=== PATIENT | female | born 2000 | race American Indian/Alaskan Native ===

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

== ENCOUNTER 2022-11-03 07:53 | Inpatient (IN) ==
--- NOTE | 2022-11-03 09:23 | Emergency Department Note ---
History of Present Illness General Chief complaint: Breast Pain/Problems Stated complaint: RIGHT BREAST IS SWOLLEN Time Seen by Provider: 11/03/22 08:07 History of Present Illness Maximum Pain Intensity: 8 This 22-year-old female presents today for evaluation of her right breast. The patient notes pain in her right breast that began a week ago. She states there was a small firm area on the undersurface of her breast at that time. She saw her PCP and was placed on oral doxycycline for 1 month. She is still taking them. She does not think they are working. The redness has increased, as well as her pain. She denies extensive firmness to her breast laterally as well as superior over the areola. She notes chills but denies any fevers or sweats. No nausea or vomiting. She states there has been no drainage from the breast. No trauma. She has history of similar episode on her left breast in August that required incision and drainage at [facility]. No additional treatment. No other complaints. Home Medications Medication Instructions Recorded Confirmed Type doxycycline hyclate 100 mg capsule 100 mg PO BID 11/03/22 11/03/22 History fluoxetine 10 mg capsule See Rx Instructions .Route .COMPLEX 11/03/22 11/03/22 History fluoxetine 20 mg capsule See Rx Instructions .Route .COMPLEX 11/03/22 11/03/22 History lamotrigine 25 mg tablet 25 mg PO BID 11/03/22 11/03/22 History loratadine 10 mg tablet 10 mg PO DAILY PRN Allergy Symptoms 11/03/22 11/03/22 History ziprasidone HCl 20 mg capsule 20 mg PO HS 11/03/22 11/03/22 History Allergies Allergy/AdvReac Type Severity Reaction Status Date / Time No Known Allergies Allergy Verified 11/03/22 09:23 Past Med/Surg History Medical History Depression Granulomatous mastitis Pre-eclampsia, severe, third trimester Surgical History History of section History of incision and drainage Family History Other No significant family history Social History Smoking Status: Never smoker Hx Alcohol Use: No Hx Substance Use: No Preferred Language: Egyptian Communication Ability: Effective Scabbler Required: No Beliefs That Will Affect Care: None marital status: Single Current Living Situation: Family Current Living Situation Comment: house with parents Feels Safe at Home: Yes Safety Concerns: Feels Safe At This Time Gender Identity: Female Assistive Devices: None Review of Systems A total of 10 systems reviewed and were otherwise negative Physical Exam Vital Signs Vital Signs - 24 hr 11/03/22 08:00 11/03/22 10:00 11/03/22 11:59 Temperature 37.2 C Temperature Source Temporal Artery Scan Pulse Rate 101 H Pulse Rate [Right Finger] 87 88 Pulse Rhythm [Right Finger] Regular Regular Pulse Strength [Right Finger] Normal Normal Respiratory Rate 18 18 18 Respiratory Effort / Characteristics Non-Labored Non-Labored Spontaneous Respiratory Depth Normal Normal Respiratory Pattern Regular Regular Blood Pressure 123/79 Blood Pressure [Right Arm] 129/74 119/68 Blood Pressure Mean 93 Blood Pressure Mean [Right Arm] 92 85 Blood Pressure Position [Right Arm] Lying Pulse Oximetry 98 100 99 Oxygen Delivery Method Room Air Room Air Room Air Sepsis New/Unexplained Change in Mental Status No Sepsis Action Taken by Nursing No Action Required General: Well-developed, well-nourished, young female, in no acute distress. Sitting on the bed. Alert and oriented. Obvious discomfort. Skin: Warm and dry with good turgor. No rashes. She has significant erythema, induration, firmness, and warmth to the right breast. It is lateral and extends superior over the areola. Area measures approximate 8cm by 8 cm. There is no palpable fluctuant area or specific abscess. Nothing is expressible. The area is very tender to touch. Heart: Heart RRR. No MGR. Peripheral pulses are 2+. Lungs: Lungs are clear to auscultation. No crackles rhonchi or wheezing. Good air movement. The patient is able to take a deep breath. Genitalia: Right breast has the above-stated induration, erythema, and tenderness. Firmness is approximately 8 cm x 8 cm. No pustules. Nothing is expressible. Course Administered Medications Ampicillin Sodium/Sulbactam Sodium 3,000 mg/ Sodium Chloride 108 mls @ 200 mls/hr IV Q6H [facility]; Protocol Stop: 11/10/22 17:59 Last Infusion: 11/03/22 19:11 Dose: 0 mls/hr Documented By: Admin: 11/03/22 18:20 Dose: 200 mls/hr Documented By: CHRIS Discontinued Medications Acetaminophen (Acetaminophen 500 Mg Tab) 1,000 mg PO NOW STA Stop: 11/03/22 12:24 Last Admin: 11/03/22 12:32 Dose: 1,000 mg Documented By: CINDY Ampicillin Sodium/Sulbactam Sodium 3,000 mg/ Sodium Chloride 108 mls @ 200 mls/hr IV NOW STA; Protocol Stop: 11/03/22 12:06 Last Infusion: 11/03/22 12:49 Dose: 0 mls/hr Documented By: Admin: 11/03/22 11:58 Dose: 200 mls/hr Documented By: CINDY Medical Decision Making Differential Diagnosis Mastitis, fibrocystic disease, abscess, cellulitis Medical Records Attestation: I reviewed the patient's medical records. Home Medications Current Medication List: was personally reviewed by me Laboratory Data CBC obtained today shows an elevated white count of 16.8. H&H of 10.3 and 32.6. Elevated platelets of 575. Chemistry panel is unremarkable. 11/03/22 11:03 11/03/22 10:13 Lab Results 11/03/22 11/03/22 11/03/22 Range/Units 10:13 10:13 11:03 WBC Cancelled 16.80 H RBC Cancelled 4.23 Hgb Cancelled 10.3 L Hct Cancelled 32.6 L MCV Cancelled 77.1 L MCH Cancelled 24.3 L MCHC Cancelled 31.6 L RDW Std Deviation Cancelled 40.6 RDW Coeff of Laura Cancelled 14.6 H Plt Count Cancelled 575 H MPV Cancelled 8.5 L Immature Gran % (Auto) Cancelled 0.4 Neut % (Auto) Cancelled 76.0 Lymph % (Auto) Cancelled 16.7 [place] % (Auto) Cancelled 4.4 Eos % (Auto) Cancelled 2.0 Baso % (Auto) Cancelled 0.5 Neut # (Auto) Cancelled 12.79 H Lymph # (Auto) Cancelled 2.80 [place] # (Auto) Cancelled 0.74 H Eos # (Auto) Cancelled 0.33 Baso # (Auto) Cancelled 0.08 Immature Gran # (Auto) Cancelled 0.06 Absolute Nucleated RBC Cancelled Nucleated RBC % (auto) Cancelled Neutrophils % (Manual) Cancelled Band Neutrophils % Cancelled Lymphocytes % (Manual) Cancelled Prolymphocyte % Cancelled Reactive Lymphs % (Man) Cancelled Monocytes % (Manual) Cancelled Eosinophils % (Manual) Cancelled Basophils % (Manual) Cancelled Metamyelocytes % (Man) Cancelled Myelocytes % (Man) Cancelled Promyelocytes % (Man) Cancelled Blast Cells % (Manual) Cancelled Plasma Cell % (Manual) Cancelled Other Cells % Cancelled Nucleated RBC % Cancelled Neutrophils # (Manual) Cancelled Band Neutrophils # Cancelled Total Absolute Neuts Cancelled Lymphocytes # (Manual) Cancelled Prolymphocyte # Cancelled Reactive Lymphs # Cancelled Total Abs Lymphocytes Cancelled Monocytes # (Manual) Cancelled Eosinophils # (Manual) Cancelled Basophils # (Manual) Cancelled Metamyelocytes # (Man) Cancelled Myelocytes # (Manual) Cancelled Promyelocytes # (Man) Cancelled Blast Cells # (Man) Cancelled Plasma Cell # (Manual) Cancelled Other Cells # Cancelled Nucleated RBCs # (Man) Cancelled Hypersegmented Neuts Cancelled Hyposegmented Neuts Cancelled Hypogranular Neuts Cancelled Large Granular Lymphs Cancelled # Lrg Granular Lymphs Cancelled Hairy Cells Cancelled Smudge Cells Cancelled Toxic Granulation Cancelled Toxic Vacuolation Cancelled Dohle Bodies Cancelled Omega Rods Cancelled Platelet Estimate Cancelled Hypogranular Platelets Cancelled Giant Platelets Cancelled Platelet Satelliting Cancelled RBC Morphology Cancelled Polychromasia Cancelled Hypochromasia Cancelled Poikilocytosis Cancelled Basophilic Stippling Cancelled Anisocytosis Cancelled Microcytosis Cancelled Macrocytosis Cancelled Spherocytes Cancelled Pappenheimer Bodies Cancelled Sickle Cells Cancelled Target Cells Cancelled Tear Drop Cells Cancelled Ovalocytes Cancelled Stomatocytes Cancelled [place]anc[place] Bodies Cancelled Echinocytes Cancelled Acanthocytes (Spur) Cancelled Rouleaux Cancelled RBC Agglutinates Cancelled Schistocytes Cancelled Sezary Cell Cancelled Sodium 135 L (136-145) mmol/L Potassium 3.8 (3.5-5.1) mmol/L Chloride 101 (98-107) mmol/L Carbon Dioxide 25 (21-32) mmol/L Anion Gap 9 (3-11) BUN 14 (6-23) mg/dl Creatinine 0.67 (0.6-1.2) mg/dl Est Cr Clr Drug Dosing 144.2 ml/min Est GFR ( Amer) 145.6 ml/min Est GFR (Non-Af Amer) 125.7 ml/min BUN/Creatinine Ratio 20.9 H (10-20) Glucose 90 (70-99(Fasting)) mg/dl Calcium 9.2 (8.6-10.3) mg/dl Total Bilirubin 0.4 (0.2-1.0) mg/dl Direct Bilirubin 0.1 (0-0.2) mg/dl AST 13 (13-39) U/L ALT 10 (7-52) U/L Alkaline Phosphatase 100 (34-104) U/L Total Protein 7.9 (6.0-8.3) gm/dl Albumin 4.0 (3.4-5.0) gm/dl Globulin 3.9 (2.5-4.0) gm/dl Albumin/Globulin Ratio 1.0 (0.9-2) Blood Parasites ID Cancelled Imaging Data My Impression: Ultrasound of the right breast was obtained today. A heterogenous area measuri ng 3.1 x 2.0 x 1.4 cm is present. It favors a focal area of phlegmon/mastitis. Developing abscess is also considered. Radiologist's Impression: Breast Ultrasound 11/03/22 08:19 US breast RT limited CLINICAL HISTORY: red/painful firm breast, on Abx COMPARISON STUDY: None. FINDINGS: Real-time sonographic imaging of the right breast at the 12-1 o'clock location was performed with patient representative images submitted. At the patient's area of interest within the right breast there is a heterogeneous area measuring approximately 3.1 x 2.0 1.4 cm. There is a amount of color flow identified within this region. Therefore, this favors a focal area of phlegmon/mastitis. A developing abscess is also considered in the differential diagnosis. IMPRESSION: At the patient's area of interest within the right breast there is a heterogeneous area measuring approximately 3.1 x 2.0 1.4 cm. There is a amount of color flow identified within this region. Therefore, this favors a focal area of phlegmon/mastitis. A developing abscess is also considered in the differential diagnosis. Follow-up imaging at a dedicated breast cancer Center is recommended to ensure resolution and to exclude the less likely possibility of underlying lesion. ACT 112: Negative or not required by law. Electronically signed by: Edis Perkins M.D. 11/03/2022 9:33 AM Blood Pressure Blood Pressure Findings: Low blood pressure MDM Narrative The patient was evaluated in room A12. Conservative care measures were discussed. IV was established. Labs were obtained. She was placed on a media monitor and remained in a stable rhythm without ectopy. Rate in the 70s. Labs show an elevation in white count. Ultrasound of the right breast was obtained. It suggests mastitis or possible early abscess. There is nothing to I&D at this time. She has failed outpatient treatment with oral doxycycline. She was given Unasyn 3 g IV for treatment. I think she requires additional IV antibiotics to ensure resolution. The patient is in agreement. She will be admitted under observation for additional IV treatment. [facility] hospitalist team was consulted. Please see that dictation for final management. She remained stable while in the ED. Impression & Plan Acute mastitis of right breast Admission for IV antibiotics. Unasyn started in the ED. The patient was seen in conjunction with Dr. Major, who also evaluated the patient and concurred with today's diagnosis and treatment plan. Discharge Plan Visit Data Chief Complaint: Breast Pain/Problems Stated Complaint: RIGHT BREAST IS SWOLLEN ED Provider: Jacques Major ED Midlevel Provider: Seferino Sanchez Discharge Problem: Acute mastitis of right breast Patient Disposition: Admitted As Inpatient Discharge Instructions Interventions: ED Discharge Assessment Last Done: 11/03/22 14:52
--- NOTE | 2022-11-03 09:36 | Ultrasound Report ---
US breast RT limited CLINICAL HISTORY: red/painful firm breast, on Abx COMPARISON STUDY: None. FINDINGS: Real-time sonographic imaging of the right breast at the 12-1 o'clock location was performe d with provider relations representative images submitted. At the patient's area of interest within the right breast the re is a heterogeneous area measuring approximately 3.1 x 2.0 1.4 cm. There is a amount of color flow identified within this region. Therefore, this favors a focal area of phlegmon/mastitis. A developing abscess is also considered in the differential diagnosis. IMPRESSION: At the patient's area of interest within the right breast there is a heterogeneous area measuring approximately 3.1 x 2.0 1.4 cm. There is a amount of color flow identified within this jose on. Therefore, this favors a focal area of phlegmon/mastitis. A developing abscess is also considered in the differential diagnosis. Follow-up imaging at a dedicated breast cancer Center is recommended to ensure resolution and to exclude the less likely possibility of underlying lesion. ACT 112: Negative or not required by law. Electronically signed by: Edis Perkins M.D. 11/03/2022 9:33 AM
[2022-11-03 10:56] LABS: Bilirubin Direct 0.1 mg/dl (0-0.2)
[2022-11-03 10:59] LABS: BUN Creatinine Ratio 20.9 (10-20); Bilirubin,Total 0.4 mg/dl (0.2-1.0); Calcium 9.2 mg/dl (8.6-10.3); Creatinine Clr Calc Pharmacy 144.2 ml/min; Est GFR (African American) 145.6 ml/min; Est GFR (Non-African American) 125.7 ml/min; Globulin 3.9 gm/dl (2.5-4.0); Potassium 3.8 mmol/L (3.5-5.1); Total Protein 7.9 gm/dl (6.0-8.3)
[2022-11-03 11:32] LABS: Basophils # (auto) 0.08 K/uL (0-0.2); Basophils % (auto) 0.5 %; Eosinophils # (auto) 0.33 K/uL (0-0.50); Hematocrit (blood only) 32.6 % (37.0-47.0); Hemoglobin 10.3 g/dl (12.0-16.0); Immature Granulocytes # (auto) 0.06 K/uL (0.01-0.20); Immature Granulocytes % (auto) 0.4 %; Lymphocytes % (auto) 16.7 %; Mean Corpuscular Hemoglobin 24.3 pg (25.0-34.0); Mean Corpuscular Hgb Conc 31.6 g/dL (32.0-36.0); Mean Corpuscular Volume 77.1 fL (80.0-100.0); Mean Platelet Volume 8.5 fL (9.4-12.4); Monocytes # (auto) 0.74 K/uL (0.11-0.59); Monocytes % (auto) 4.4 %; Neutrophils # (auto) 12.79 K/uL (1.40-6.50); Platelet Count 575 K/uL (130-400); RDW Coefficient of Variation 14.6 % (11.5-14.5); RDW Standard Deviation 40.6 fL (36.4-46.3); Red Blood Count 4.23 M/uL (4.20-5.40)
[2022-11-03] MEDS ORDERED: AMPICILLIN/SULBACTAM SOD 3,000 MG in 0.9 % SODIUM CHLORIDE 100 ML IV STA (11:34)
[2022-11-03] MEDS ORDERED: ACETAMINOPHEN 500 MG TAB PO STA (12:23)
--- NOTE | 2022-11-03 15:05 | History & Physical Report ---
Date of Service November 03, 2022 Assessment & Plan (1) Granulomatous mastitis: Plan: Admit to [facility] Patient presenting from home with worsening right breast swelling, pain, and redness. Had similar issue in August in the left breast and then developed in the right. 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 Left breast resolved. Patient started on 1 month course of doxycycline on 10/17. Has been following with Dr. Katey Nayak. In the ED, labs show WBC 16.8 K, patient is afebrile and hemodynamically stable. Right breast US:At the patient's area of interest within the right breast there is a heterogeneous area measuring approximately 3.1 x 2.0 1.4 cm. There is a amount of color flow identified within this region. Therefore, this favors a focal area of phlegmon/mastitis. A developing abscess is also considered in the differential diagnosis. S/p Unasyn in the ED, continue with Surgery consult placed with Dr. Canales (2) Depression: Plan: Stable, continue home meds DVT PROPHYLAXIS SQ Lovenox Patient seen in collaboration with Dr. Norwood. I spent a total of 75 minutes coordinating, documenting, and providing care for this patient excluding time spent in the performance of separately billed services. This included personally reviewing all current laboratories and imaging studies, medication reconciliation, outpatient chart review, and discussion with specialists. History of Present Illness Chief Complaint: Right breast pain Primary Care Provider: Lynn Ohara, 22-year-old female with PMH depression and other problems listed below who presents to the ED for evaluation of right breast pain. History obtained from the patient and review of outpatient PCP and general surgery records. In August, patient was treated for left breast mastitis with cephalexin. Patient underwent left breast ultrasound that was consistent with mastitis. Patient subsequently followed up with breast surgeon and subsequently developed a similar lump in the right breast. She had biopsies taken of both lumps that were consistent with idiopathic granulomatous mastitis. Patient started on a 1 month course of doxyc ycline on 10/17. Left breast lump, swelling, pain has resolved however right breast has been unchanged and starting doxycycline and acutely worsened over the past few days. Patient reports feeling chills however did not take her temperature. She denies chest pain or shortness of breath. No lightheadedness, duties, diaphoresis, syncopal events. She denies abdominal pain, nausea, vomiting, diarrhea. No urinary symptoms. In the ED, ultrasound shows heterogeneous area measuring approximately 3.1 x 2.0 1.4 cm. There is a amount of color flow identified within this region. Therefore, this favors a focal area of phlegmon/mastitis. Labs show WBC 16.8 K, patient is afebrile. She was given IV Unasyn. Allergies Allergy/AdvReac Type Severity Reaction Status Date / Time No Known Allergies Allergy Verified 11/03/22 09:23 Home Medications Medication Instructions Recorded Confirmed Type doxycycline hyclate 100 mg capsule 100 mg PO BID 11/03/22 11/03/22 History fluoxetine 10 mg capsule See Rx Instructions .Route .COMPLEX 11/03/22 11/03/22 History fluoxetine 20 mg capsule See Rx Instructions .Route .COMPLEX 11/03/22 11/03/22 History lamotrigine 25 mg tablet 25 mg PO BID 11/03/22 11/03/22 History loratadine 10 mg tablet 10 mg PO DAILY PRN Allergy Symptoms 11/03/22 11/03/22 History ziprasidone HCl 20 mg capsule 20 mg PO HS 11/03/22 11/03/22 History Past Med/Surg History Medical History Depression Granulomatous mastitis Pre-eclampsia, severe, third trimester Surgical History History of section History of incision and drainage Family History Other No significant family history Social History Smoking Status: Never smoker Hx Alcohol Use: No Hx Substance Use: No Preferred Language: Ukrainian Communication Ability: Effective Advanced Registered Nurse Required: No Beliefs That Will Affect Care: None marital status: Single Current Living Situation: Family Current Living Situation Comment: house with parents Feels Safe at Home: Yes Safety Concerns: Feels Safe At This Time Gender Identity: Female Assistive Devices: None Review of Systems Review of Systems: ROS per HPI, all other systems reviewed and negative Physical Exam Physical Exam: please refer to Dr. Norwood's addendum for physical exam Results & Data Results & Data Vital Signs (Past 12 Hours) Vital Signs Temp Pulse Pulse Resp BP BP Pulse Ox 11/03/22 11:59 88 18 119/68 99 11/03/22 10:00 87 18 129/74 100 11/03/22 08:00 37.2 C 101 H 18 123/79 98 O2 Del Method 11/03/22 11:59 Room Air 11/03/22 10:00 Room Air 11/03/22 08:00 Room Air Laboratory Results Short CBC 11/03/22 11/03/22 Range/Units 10:13 11:03 WBC Cancelled 16.80 H Hgb Cancelled 10.3 L Hct Cancelled 32.6 L Plt Count Cancelled 575 H BMP 11/03/22 10:13 Sodium 135 L Potassium 3.8 Chloride 101 Carbon Dioxide 25 BUN 14 Creatinine 0.67 Glucose 90 Calcium 9.2 Liver Function 11/03/22 Range/Units 10:13 Total Bilirubin 0.4 (0.2-1.0) mg/dl Direct Bilirubin 0.1 (0-0.2) mg/dl AST 13 (13-39) U/L ALT 10 (7-52) U/L Alkaline Phosphatase 100 (34-104) U/L Albumin 4.0 (3.4-5.0) gm/dl Diagnostic Findings Breast Ultrasound 11/03/22 08:19 US breast RT limited CLINICAL HISTORY: red/painful firm breast, on Abx COMPARISON STUDY: None. FINDINGS: Real-time sonographic imaging of the right breast at the 12-1 o'clock location was performed with civil rights representative images submitted. At the patient's area of interest within the right breast there is a heterogeneous area measuring approximately 3.1 x 2.0 1.4 cm. There is a amount of color flow identified within this region. Therefore, this favors a focal area of phlegmon/mastitis. A developing abscess is also considered in the differential diagnosis. IMPRESSION: At the patient's area of interest within the right breast there is a heterogeneous area measuring approximately 3.1 x 2.0 1.4 cm. There is a amount of color flow identified within this region. Therefore, this favors a focal area of phlegmon/mastitis. A developing abscess is also considered in the differential diagnosis. Follow-up imaging at a dedicated breast cancer Center is recommended to ensure resolution and to exclude the less likely possibility of underlying lesion. ACT 112: Negative or not required by law. Electronically signed by: Edis Perkins M.D. 11/03/2022 9:33 AM Code Status & VTE Plan VTE Prophylaxis Plan VTE Prophylaxis will be ordered: Yes Supervising Physician Co-Signing Physician Notes Ms. 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 She presented d/t right breast pain. She is found to have idiopathic granulomatous mastitis c/b developing abscess. She is receiving Unasyn. Ms. Gonzalez presented today because right breast pain that worsened despite compliance with Doxycycline (started 10/17). This is associated with erythema, swelling, and chills. She denies HORNE, dizziness, lightheadedness, f/n/v, sob, cough, congestion, sore throat, abdominal pain, diarrhea, and dysuria. This started with left breast mastitis back in August (tx with Keflex). She went to follow up with a breast surgeon. By the time of her appointment the left breast had cleared, or mostly cleared up, and she was developing a lump in the right side. Lumps in both breasts were bx and found to be idiopathic granulomatous mastitis. While on Doxycycline (started 10/17) the right breast did not get any worse, but also did not get any better. ED course: VS notable for afebrile, HDS b/w notable for wbc 16.8 ultrasound read as heterogeneous area measuring approximately 3.1 x 2.0 1.4 cm. There is a amount of color flow identified within this region. Therefore, this favors a focal area of phlegmon/mastitis. given IV Unasyn and admitted to hospitalist service. General: NAD, obese, well nourished, well nourished, non-toxic appearing Head: NC AT Eyes: anicteric sclera, no conjunctival injection Nose: normal, nares patent Mouth: MMM Neck: supple, trachea midline CV: RRR S1 S2 Pulm: CTA b/l Abd/GI: + BS, soft, NT, ND, no guarding : no herrera Ext: no pretibial edema, peripheral pulses intact MSK: normal bulk and tone Neuro: alert, oriented, moving all 4 extremities symmetrically. No focal deficits. Psych: flat mood and affect Skin: Right breast with inferior lateral erythema and induration. No clearly circumscribed mass palpable. No drainage noted. # mastitis: failing outpatient tx with Doxycycline continue Unasyn surgery consulted, appreciate input, will follow recs consider ID c/s # depression: stable, continue fluoxetine, lamotrigine, and ziprasidone Rest per attested note above
[2022-11-03] MEDS ORDERED: ENOXAPARIN INJ 40 MG/0.4 ML SYR SQ SCH (18:00)
[2022-11-03] MEDS ORDERED: Nursing to Pharmacy Communication SCH (18:00)
[2022-11-03] MEDS: AMPICILLIN/SULBACTAM SOD 3,000 MG in 0.9 % SODIUM CHLORIDE 100 ML IV SCH ×2 (18:20→23:47)
[2022-11-03] MEDS: FLUoxetine HCL 10 MG CAP PO SCH (21:34)
[2022-11-03] MEDS: lamoTRIgine 25 MG TAB PO SCH (21:34)
[2022-11-03] MEDS: FLUoxetine HCL 20 MG CAP PO SCH (21:35)
[2022-11-03] MEDS: ENOXAPARIN INJ 40 MG/0.4 ML SYR SQ SCH (21:35)
[2022-11-04] MEDS: AMPICILLIN/SULBACTAM SOD 3,000 MG in 0.9 % SODIUM CHLORIDE 100 ML IV SCH ×4 (05:23→23:22)
[2022-11-04 06:24] LABS: Hematocrit (blood only) 32.2 % (37.0-47.0); Hemoglobin 10.3 g/dl (12.0-16.0); Mean Corpuscular Hemoglobin 24.4 pg (25.0-34.0); Mean Corpuscular Volume 76.3 fL (80.0-100.0); Mean Platelet Volume 8.6 fL (9.4-12.4); Platelet Count 576 K/uL (130-400); RDW Coefficient of Variation 14.6 % (11.5-14.5); RDW Standard Deviation 39.8 fL (36.4-46.3); Red Blood Count 4.22 M/uL (4.20-5.40); White Blood Count 17.35 K/ul (4.8-10.8)
[2022-11-04 06:36] LABS: Anion Gap 9 (3-11); BUN Creatinine Ratio 17.2 (10-20); Blood Urea Nitrogen 10 mg/dl (6-23); Calcium 8.8 mg/dl (8.6-10.3); Carbon Dioxide 25 mmol/L (21-32); Chloride 104 mmol/L (98-107); Creatinine Clr Calc Pharmacy 166.5 ml/min; Est GFR (African American) > 150.0 ml/min; Est GFR (Non-African American) 131.8 ml/min; Glucose 86 mg/dl (70-99(Fasting)); Potassium 3.8 mmol/L (3.5-5.1); Sodium 138 mmol/L (136-145)
[2022-11-04] MEDS: ACETAMINOPHEN 325 MG TAB PO PRN ×2 (09:02→23:26)
[2022-11-04] MEDS: lamoTRIgine 25 MG TAB PO SCH ×2 (09:03→20:58)
--- NOTE | 2022-11-04 10:56 | Surgery Consultation ---
Date of Consultation November 04, 2022 Assessment & Plan (1) Acute mastitis of right breast: (2) Granulomatous mastitis: Plan 22 year-old female with history of granulomatous mastitis and recent incision and drainage of left breast abscess in September presented to ED with increasing right breast pain, redness and swelling. Leukocytosis of 16k, ultrasound of right breast showing phlegmonous/mastitis changes with possible developing abscess. Examination of right breast with cellulitis of the central to lateral breast with focal area of erythema at 12 O'clock periareolar edge with induration however no discrete fluctuance to suggest drainable abscess. Chronic induration/fluctuant changes of the right outer lower breast on exam and per patient Plan: Would recommend conservative management with IV antibiotics, IV steroids, and pain management. May take 48 hours of IV antibiotics to notice improvement in cellulitic changes. If wbc continues to increase or no significant improvement, can repeat ultrasound to assess for drainable fluid collection Po Tylenol and Ibuprofen prn pain, can alternate Surgical bra advised to compress/support breasts Telfa dressing to left breast at site of prior I&D as there is exposed tissue trying to heal to avoid infection Area of cellulitis of right breast marked with skin marker, continue to monitor recommend repeating am wbc ID consulted, await recommendations Discussed with Dr. Nayak who agrees with above. History of Present Illness Reason for Consultation: right breast cellulitis/possible abscess history of IGM Requesting Physician: Jose Perdue MD Attending Physician: Jose Perdue MD History of Present Illness Prachi is a 22 year-old female with history of idiopathic granulomatous mastitis who follows with Dr. Katey Nayak presented to emergency room with increasing right breast pain, swelling, and redness for last week despite being on oral doxycycline since end of September. States she had associated chills but no fevers, no nausea or vomiting. States pain was in the upper central right breast. Stable swelling and thickening of the right lower outer breast. Similar pain and symptoms to when she had an abscess of the left breast in September which was drained in office. Currently states pain in right breast is about the same a 6/10. Taking Tylenol which is helping somewhat. Denies fevers here in hospital. Er work-up included labs which showed leukocytosis of 16k and ultrasound of right breast with heterogeneous area measuring approximately 3.1 x 2.0 1.4 cm. There is a amount of color flow identified within this region. Therefore, this favors a focal area of phlegmon/mastitis. Wbc slightly elevated to 17k today. Allergies Allergy/AdvReac Type Severity Reaction Status Date / Time No Known Allergies Allergy Verified 11/03/22 09:23 Home Medications Medication Instructions Recorded Confirmed Type doxycycline hyclate 100 mg capsule 100 mg PO BID 11/03/22 11/03/22 History fluoxetine 10 mg capsule See Rx Instructions .Route .COMPLEX 11/03/22 11/03/22 History fluoxetine 20 mg capsule See Rx Instructions .Route .COMPLEX 11/03/22 11/03/22 History lamotrigine 25 mg tablet 25 mg PO BID 11/03/22 11/03/22 History loratadine 10 mg tablet 10 mg PO DAILY PRN Allergy Symptoms 11/03/22 11/03/22 History ziprasidone HCl 20 mg capsule 20 mg PO HS 11/03/22 11/03/22 History Patient History Medical History Depression Granulomatous mastitis Pre-eclampsia, severe, third trimester Surgical History History of section History of incision and drainage Family History Other No significant family history Social History Smoking Status: Never smoker Hx Alcohol Use: No Hx Substance Use: No Preferred Language: Kenyan Communication Ability: Effective Clearing Tub Worker Required: No Beliefs That Will Affect Care: None marital status: Single Current Living Situation: Family Current Living Situation Comment: house with parents Feels Safe at Home: Yes Safety Concerns: Feels Safe At This Time Gender Identity: Female Assistive Devices: None Review of Systems Review of Systems: All systems reviewed & are unremarkable except as noted in HPI & below Physical Exam Constitutional: WD/WN, vitals as above + overweight; no acute distress and not ill appearing Respiratory: normal respiratory effort; no respiratory distress Chest (Breasts): Additional Comments: Right breast: There is erythema of the central and lateral breast with focal area of erythema of the 12 O'clock areolar edge with induration however no discrete fluctuance about 3 cm in diameter. This is also chronic induration of the lower outer right breast areolar edge with focal area of fluctuance. THis is stable and chronic per patient and not area of pain. Left breast: there is chronic induration of lower outer breast with small open wound with healthy granulation tissue at site of prior I&D. Skin: no rashes, warm and dry Psychiatric: Orientation: alert and oriented x 3 Results & Data Vital Signs (Past 12 Hours) Vital Signs Temp Pulse Resp BP Pulse Ox O2 Del Method 11/04/22 08:55 37.3 C 94 H 16 97/45 L 96 Room Air 11/04/22 05:25 37.2 C 90 18 102/57 L 96 Room Air 11/03/22 23:47 36.9 C 88 18 103/68 98 Room Air Laboratory Results 11/04/22 11/04/22 11/03/22 Range/Units 05:50 05:50 11:03 WBC 17.35 H 16.80 H RBC 4.22 4.23 Hgb 10.3 L 10.3 L Hct 32.2 L 32.6 L MCV 76.3 L 77.1 L MCH 24.4 L 24.3 L MCHC 32.0 31.6 L RDW Std Deviation 39.8 40.6 RDW Coeff of Laura 14.6 H 14.6 H Plt Count 576 H 575 H MPV 8.6 L 8.5 L Immature Gran % (Auto) 0.4 Neut % (Auto) 76.0 Lymph % (Auto) 16.7 [place] % (Auto) 4.4 Eos % (Auto) 2.0 Baso % (Auto) 0.5 Neut # (Auto) 12.79 H Lymph # (Auto) 2.80 [place] # (Auto) 0.74 H Eos # (Auto) 0.33 Baso # (Auto) 0.08 Immature Gran # (Auto) 0.06 Absolute Nucleated RBC Nucleated RBC % (auto) Neutrophils % (Manual) Band Neutrophils % Lymphocytes % (Manual) Prolymphocyte % Reactive Lymphs % (Man) Monocytes % (Manual) Eosinophils % (Manual) Basophils % (Manual) Metamyelocytes % (Man) Myelocytes % (Man) Promyelocytes % (Man) Blast Cells % (Manual) Plasma Cell % (Manual) Other Cells % Nucleated RBC % Neutrophils # (Manual) Band Neutrophils # Total Absolute Neuts Lymphocytes # (Manual) Prolymphocyte # Reactive Lymphs # Total Abs Lymphocytes Monocytes # (Manual) Eosinophils # (Manual) Basophils # (Manual) Metamyelocytes # (Man) Myelocytes # (Manual) Promyelocytes # (Man) Blast Cells # (Man) Plasma Cell # (Manual) Other Cells # Nucleated RBCs # (Man) Hypersegmented Neuts Hyposegmented Neuts Hypogranular Neuts Large Granular Lymphs # Lrg Granular Lymphs Hairy Cells Smudge Cells Toxic Granulation Toxic Vacuolation Dohle Bodies Omega Rods Platelet Estimate Hypogranular Platelets Giant Platelets Platelet Satelliting RBC Morphology Polychromasia Hypochromasia Poikilocytosis Basophilic Stippling Anisocytosis Microcytosis Macrocytosis Spherocytes Pappenheimer Bodies Sickle Cells Target Cells Tear Drop Cells Ovalocytes Stomatocytes Mancini-Solvay Bodies Echinocytes Acanthocytes (Spur) Rouleaux RBC Agglutinates Schistocytes Sezary Cell Sodium 138 (136-145) mmol/L Potassium 3.8 (3.5-5.1) mmol/L Chloride 104 (98-107) mmol/L Carbon Dioxide 25 (21-32) mmol/L Anion Gap 9 (3-11) BUN 10 (6-23) mg/dl Creatinine 0.58 L (0.6-1.2) mg/dl Est Cr Clr Drug Dosing 166.5 ml/min Est GFR ( Amer) > 150.0 ml/min Est GFR (Non-Af Amer) 131.8 ml/min BUN/Creatinine Ratio 17.2 (10-20) Glucose 86 (70-99(Fasting)) mg/dl Calcium 8.8 (8.6-10.3) mg/dl Total Bilirubin (0.2-1.0) mg/dl Direct Bilirubin (0-0.2) mg/dl AST (13-39) U/L ALT (7-52) U/L Alkaline Phosphatase (34-104) U/L Total Protein (6.0-8.3) gm/dl Albumin (3.4-5.0) gm/dl Globulin (2.5-4.0) gm/dl Albumin/Globulin Ratio (0.9-2) Blood Parasites ID 11/03/22 11/03/22 Range/Units 10:13 10:13 WBC Cancelled RBC Cancelled Hgb Cancelled Hct Cancelled MCV Cancelled MCH Cancelled MCHC Cancelled RDW Std Deviation Cancelled RDW Coeff of Laura Cancelled Plt Count Cancelled MPV Cancelled Immature Gran % (Auto) Cancelled Neut % (Auto) Cancelled Lymph % (Auto) Cancelled [place] % (Auto) Cancelled Eos % (Auto) Cancelled Baso % (Auto) Cancelled Neut # (Auto) Cancelled Lymph # (Auto) Cancelled [place] # (Auto) Cancelled Eos # (Auto) Cancelled Baso # (Auto) Cancelled Immature Gran # (Auto) Cancelled Absolute Nucleated RBC Cancelled Nucleated RBC % (auto) Cancelled Neutrophils % (Manual) Cancelled Band Neutrophils % Cancelled Lymphocytes % (Manual) Cancelled Prolymphocyte % Cancelled Reactive Lymphs % (Man) Cancelled Monocytes % (Manual) Cancelled Eosinophils % (Manual) Cancelled Basophils % (Manual) Cancelled Metamyelocytes % (Man) Cancelled Myelocytes % (Man) Cancelled Promyelocytes % (Man) Cancelled Blast Cells % (Manual) Cancelled Plasma Cell % (Manual) Cancelled Other Cells % Cancelled Nucleated RBC % Cancelled Neutrophils # (Manual) Cancelled Band Neutrophils # Cancelled Total Absolute Neuts Cancelled Lymphocytes # (Manual) Cancelled Prolymphocyte # Cancelled Reactive Lymphs # Cancelled Total Abs Lymphocytes Cancelled Monocytes # (Manual) Cancelled Eosinophils # (Manual) Cancelled Basophils # (Manual) Cancelled Metamyelocytes # (Man) Cancelled Myelocytes # (Manual) Cancelled Promyelocytes # (Man) Cancelled Blast Cells # (Man) Cancelled Plasma Cell # (Manual) Cancelled Other Cells # Cancelled Nucleated RBCs # (Man) Cancelled Hypersegmented Neuts Cancelled Hyposegmented Neuts Cancelled Hypogranular Neuts Cancelled Large Granular Lymphs Cancelled # Lrg Granular Lymphs Cancelled Hairy Cells Cancelled Smudge Cells Cancelled Toxic Granulation Cancelled Toxic Vacuolation Cancelled Dohle Bodies Cancelled Omega Rods Cancelled Platelet Estimate Cancelled Hypogranular Platelets Cancelled Giant Platelets Cancelled Platelet Satelliting Cancelled RBC Morphology Cancelled Polychromasia Cancelled Hypochromasia Cancelled Poikilocytosis Cancelled Basophilic Stippling Cancelled Anisocytosis Cancelled Microcytosis Cancelled Macrocytosis Cancelled Spherocytes Cancelled Pappenheimer Bodies Cancelled Sickle Cells Cancelled Target Cells Cancelled Tear Drop Cells Cancelled Ovalocytes Cancelled Stomatocytes Cancelled Mancini-Solvay Bodies Cancelled Echinocytes Cancelled Acanthocytes (Spur) Cancelled Rouleaux Cancelled RBC Agglutinates Cancelled Schistocytes Cancelled Sezary Cell Cancelled Sodium 135 L (136-145) mmol/L Potassium 3.8 (3.5-5.1) mmol/L Chloride 101 (98-107) mmol/L Carbon Dioxide 25 (21-32) mmol/L Anion Gap 9 (3-11) BUN 14 (6-23) mg/dl Creatinine 0.67 (0.6-1.2) mg/dl Est Cr Clr Drug Dosing 144.2 ml/min Est GFR ( Amer) 145.6 ml/min Est GFR (Non-Af Amer) 125.7 ml/min BUN/Creatinine Ratio 20.9 H (10-20) Glucose 90 (70-99(Fasting)) mg/dl Calcium 9.2 (8.6-10.3) mg/dl Total Bilirubin 0.4 (0.2-1.0) mg/dl Direct Bilirubin 0.1 (0-0.2) mg/dl AST 13 (13-39) U/L ALT 10 (7-52) U/L Alkaline Phosphatase 100 (34-104) U/L Total Protein 7.9 (6.0-8.3) gm/dl Albumin 4.0 (3.4-5.0) gm/dl Globulin 3.9 (2.5-4.0) gm/dl Albumin/Globulin Ratio 1.0 (0.9-2) Blood Parasites ID Cancelled Diagnostic Findings US breast RT limited CLINICAL HISTORY: red/painful firm breast, on Abx COMPARISON STUDY: None. FINDINGS: Real-time sonographic imaging of the right breast at the 12-1 o'clock location was performed with sales representative trainee images submitted. At the patient's area of interest within the right breast there is a heterogeneous area measuring approximately 3.1 x 2.0 1.4 cm. There is a amount of color flow identified within this region. Therefore, this favors a focal area of phlegmon/mastitis. A developing abscess is also considered in the differential diagnosis. IMPRESSION: At the patient's area of interest within the right breast there is a heterogeneous area measuring approximately 3.1 x 2.0 1.4 cm. There is a amount of color flow identified within this region. Therefore, this favors a focal area of phlegmon/mastitis. A developing abscess is also considered in the differential diagnosis. Follow-up imaging at a dedicated breast cancer Center is recommended to ensure resolution and to exclude the less likely possibility of underlying lesion.
[2022-11-04] MEDS: IBUPROFEN 600 MG TAB PO PRN (11:54)
--- NOTE | 2022-11-04 17:00 | Hospitalist Progress Note ---
Date of Service November 04, 2022 Assessment & Plan (1) Acute mastitis of right breast: Plan: Patient presenting from home with worsening right breast swelling, pain, and redness. Had similar issue in August in the left breast and then developed in the right. 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 Left breast resolved. Patient started on 1 month course of doxycycline on 10/17. Has been following with Dr. Katey Nayak. In the ED, labs show WBC 16.8 K, patient is afebrile and hemodynamically stable. Right breast US:At the patient's area of interest within the right breast there is a heterogeneous area measuring approximately 3.1 x 2.0 1.4 cm. There is a amount of color flow identified within this region. Therefore, this favors a focal area of phlegmon/mastitis. A developing abscess is also considered in the differential diagnosis. c/w Unasyn 11/03. Gen Sx evaled, appreciate recs. ID consult, await recs. (2) Depression: Plan: Stable, continue home meds DVT PROPHYLAXIS SQ Lovenox Admission and Anticipated Discharge Date Admission Date: November 03, 2022 Subjective Patient seen and examined at bedside as a follow-up of right sided mastitis, failed outpatient treatment with doxycycline. Patient was lying in bed, on room air, NAD, reports no new acute event overnight, reports eating okay and moving bowels okay. Patient denies any fever/chills/chest pain/palpitation. Physical Exam Physical Exam: GENERAL: Alert and oriented x3. NAD, on RA. HEENT: No pallor, no icterus. Pupils equal, round and reactive to light. Oral mucosa moist. NECK: No JVD, no neck masses. HEART: S1 and S2 heard. Regular rate and rhythm. No murmur, no gallop. RESPIRATORY SYSTEM: Normal AP diameter. No accessory muscle use. No wheezing, no crackles. ABDOMEN: Soft, bowel sounds present, nontender, no distention. CENTRAL NERVOUS SYSTEM: No facial droop. Speech is clear. Obeys simple commands. Moves extremities. EXTREMITIES: No edema, no erythema seen. Rt breast w/ inf fluctuation x <1 cm, medial induration; surrounding erythema and warmth. Left breast w/ approx 1 cm ulcer w/ no s/s of infection or inflammation. Results & Data Results & Data Vital Signs (Past 12 Hours) Vital Signs Temp Pulse Resp BP Pulse Ox O2 Del Method 11/04/22 12:09 37 C 75 18 103/61 95 Room Air 11/04/22 08:55 37.3 C 94 H 16 97/45 L 96 Room Air 11/04/22 05:25 37.2 C 90 18 102/57 L 96 Room Air
[2022-11-04] MEDS: ENOXAPARIN INJ 40 MG/0.4 ML SYR SQ SCH (20:57)
[2022-11-04] MEDS: FLUoxetine HCL 10 MG CAP PO SCH (20:58)
[2022-11-04] MEDS: FLUoxetine HCL 20 MG CAP PO SCH (20:58)
[2022-11-05] MEDS: AMPICILLIN/SULBACTAM SOD 3,000 MG in 0.9 % SODIUM CHLORIDE 100 ML IV SCH ×4 (06:15→23:26)
--- NOTE | 2022-11-05 07:09 | Surgery Progress Note ---
Date of Service November 05, 2022 Assessment & Plan (1) Acute mastitis of right breast: (2) Granulomatous mastitis: Plan 22 year-old female with history of granulomatous mastitis and recent incision and drainage of left breast abscess in September presented to ED with increasing right breast pain, redness and swelling. Leukocytosis of 16k, ultrasound of right breast showing phlegmonous/mastitis changes with possible developing abscess. Chronic induration/fluctuant changes of the right outer lower breast on exam and per patient 11/05/2022 afebrile, vss pain slightly improved erythema slightly improved wbc pending Plan: continue conservative management with IV antibiotics, IV steroids, and pain management. If wbc continues to increase or no significant improvement, can repeat ultrasound to assess for drainable fluid collection Po Tylenol and Ibuprofen prn pain, can alternate Surgical bra compress/support breasts Telfa dressing to left breast at site of prior I&D as there is exposed tissue trying to heal to avoid infection ID consulted, Dr. Morales has seen and examined patient Admission and Anticipated Discharge Date Admission Date: November 03, 2022 Subjective feeling a little better today pain better controlled today no fever or chills Physical Exam Constitutional: WD/WN, vitals as above cooperative, comfortable and + overweight; no acute distress and not ill appearing Respiratory: normal respiratory effort; no respiratory distress Chest (Breasts): Additional Comments: Right breast: Central erythema with focal area at 12 O'clock of more increased erythema. There is chronic induration of the lower outer breast 7 o'clock with some skin sloughing, Erythema slightly improved UOQ from skin marking. No focal areas of fluctuance. Skin: no rashes, warm and dry Results & Data Vital Signs (Past 12 Hours) Vital Signs Temp Pulse Resp BP Pulse Ox O2 Del Method 11/04/22 23:25 36.8 C 94 H 18 109/70 96 Room Air 11/04/22 21:00 36.8 C 77 18 100/65 96 Room Air Laboratory Results 11/05/22 11/05/22 Range/Units 06:28 06:28 WBC Pending RBC Pending Hgb Pending Hct Pending MCV Pending MCH Pending MCHC Pending Plt Count Pending Sodium Pending Potassium Pending Chloride Pending Carbon Dioxide Pending Anion Gap Pending BUN Pending Creatinine Pending Est Cr Clr Drug Dosing Pending Est GFR ( Amer) Pending Est GFR (Non-Af Amer) Pending BUN/Creatinine Ratio Pending Glucose Pending Calcium Pending Phosphorus Pending Magnesium Pending
[2022-11-05 07:13] LABS: Hematocrit (blood only) 32.3 % (37.0-47.0); Hemoglobin 10.4 g/dl (12.0-16.0); Mean Corpuscular Hemoglobin 24.4 pg (25.0-34.0); Mean Corpuscular Hgb Conc 32.2 g/dL (32.0-36.0); Mean Corpuscular Volume 75.6 fL (80.0-100.0); Platelet Count 551 K/uL (130-400); RDW Coefficient of Variation 14.6 % (11.5-14.5); RDW Standard Deviation 39.7 fL (36.4-46.3); Red Blood Count 4.27 M/uL (4.20-5.40); White Blood Count 16.49 K/ul (4.8-10.8)
[2022-11-05 07:28] LABS: Anion Gap 8 (3-11); BUN Creatinine Ratio 13.7 (10-20); Blood Urea Nitrogen 7 mg/dl (6-23); Calcium 8.5 mg/dl (8.6-10.3); Carbon Dioxide 25 mmol/L (21-32); Chloride 106 mmol/L (98-107); Creatinine Clr Calc Pharmacy 189.4 ml/min; Est GFR (African American) > 150.0 ml/min; Est GFR (Non-African American) 137.5 ml/min; Glucose 90 mg/dl (70-99(Fasting)); Magnesium 2.2 mg/dl (1.7-2.4); Potassium 4.2 mmol/L (3.5-5.1); Sodium 139 mmol/L (136-145)
[2022-11-05] MEDS: ACETAMINOPHEN 325 MG TAB PO PRN (08:11)
[2022-11-05] MEDS: lamoTRIgine 25 MG TAB PO SCH ×2 (08:11→21:48)
--- NOTE | 2022-11-05 15:09 | Hospitalist Progress Note ---
Date of Service November 05, 2022 Assessment & Plan (1) Acute mastitis of right breast: Plan: Patient presenting from home with worsening right breast swelling, pain, and redness. Had similar issue in August in the left breast and then developed in the right. 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 Left breast resolved. Patient started on 1 month course of doxycycline on 10/17. Has been following with Dr. Katey Nayak. In the ED, labs show WBC 16.8 K, patient is afebrile and hemodynamically stable. Right breast US:At the patient's area of interest within the right breast there is a heterogeneous area measuring approximately 3.1 x 2.0 1.4 cm. There is a amount of color flow identified within this region. Therefore, this favors a focal area of phlegmon/mastitis. A developing abscess is also considered in the differential diagnosis. c/w Unasyn 11/03. MRSA screen is negative. Patient has been afebrile Gen Sx evaled, appreciate recs. ID evaluated, agrees with Unasyn, final antibiotic plan to be decided Erythema and warmth improving, will follow clinically. ?? Repeat ultrasound breast xrt (2) Depression: Plan: Stable, continue home meds DVT PROPHYLAXIS SQ Lovenox Admission and Anticipated Discharge Date Admission Date: November 03, 2022 Subjective Patient seen and examined at bedside as a follow-up of right sided mastitis, failed outpatient treatment with doxycycline. Patient was sitting up in chair, on room air, NAD, reports no new acute event overnight, reports eating okay and moving bowels okay. Patient denies any fever/chills/chest pain/palpitation. Patient reports feeling better. Physical Exam Physical Exam: GENERAL: Alert and oriented x3. NAD, on RA. HEENT: No pallor, no icterus. Pupils equal, round and reactive to light. Oral mucosa moist. NECK: No JVD, no neck masses. HEART: S1 and S2 heard. Regular rate and rhythm. No murmur, no gallop. RESPIRATORY SYSTEM: Normal AP diameter. No accessory muscle use. No wheezing, no crackles. ABDOMEN: Soft, bowel sounds present, nontender, no distention. CENTRAL NERVOUS SYSTEM: No facial droop. Speech is clear. Obeys simple commands. Moves extremities. EXTREMITIES: No edema, no erythema seen. Rt breast w/ inf fluctuation x <1 cm, medial induration; surrounding erythema and warmth -->>> improving. Left breast w/ approx 1 cm ulcer w/ no s/s of infection or inflammation. Results & Data Results & Data Vital Signs (Past 12 Hours) Vital Signs Temp Pulse Resp BP Pulse Ox O2 Del Method 11/05/22 11:50 36.9 C 80 16 109/63 99 Room Air 11/05/22 08:00 37.5 C 83 16 103/50 L 96 Room Air
[2022-11-05] MEDS: IBUPROFEN 600 MG TAB PO PRN (15:41)
[2022-11-05] MEDS: ENOXAPARIN INJ 40 MG/0.4 ML SYR SQ SCH (21:47)
[2022-11-05] MEDS: FLUoxetine HCL 10 MG CAP PO SCH (21:48)
[2022-11-05] MEDS: FLUoxetine HCL 20 MG CAP PO SCH (21:48)
[2022-11-06] MEDS: AMPICILLIN/SULBACTAM SOD 3,000 MG in 0.9 % SODIUM CHLORIDE 100 ML IV SCH ×3 (05:55→18:15)
[2022-11-06 06:32] LABS: Hemoglobin 10.7 g/dl (12.0-16.0); Mean Corpuscular Hemoglobin 24.3 pg (25.0-34.0); Mean Corpuscular Hgb Conc 32.4 g/dL (32.0-36.0); Mean Corpuscular Volume 74.8 fL (80.0-100.0); Mean Platelet Volume 8.9 fL (9.4-12.4); Platelet Count 626 K/uL (130-400); RDW Coefficient of Variation 14.6 % (11.5-14.5); RDW Standard Deviation 39.6 fL (36.4-46.3); Red Blood Count 4.41 M/uL (4.20-5.40); White Blood Count 17.08 K/ul (4.8-10.8)
[2022-11-06 06:51] LABS: Anion Gap 7 (3-11); BUN Creatinine Ratio 17.9 (10-20); Blood Urea Nitrogen 10 mg/dl (6-23); Calcium 8.6 mg/dl (8.6-10.3); Carbon Dioxide 25 mmol/L (21-32); Chloride 105 mmol/L (98-107); Creatinine Clr Calc Pharmacy 172.5 ml/min; Est GFR (African American) > 150.0 ml/min; Est GFR (Non-African American) 133.3 ml/min; Glucose 99 mg/dl (70-99(Fasting)); Potassium 4.2 mmol/L (3.5-5.1); Sodium 137 mmol/L (136-145)
[2022-11-06] MEDS ORDERED: VANCOMYCIN CONSULT ACTIVE PRN (09:31)
[2022-11-06] MEDS ORDERED: VANCOMYCIN HCL 2,000 MG in SODIUM CHLORIDE 0.9% 500 ML IV STA (10:22)
[2022-11-06] MEDS: lamoTRIgine 25 MG TAB PO SCH ×2 (10:41→20:57)
[2022-11-06] MEDS: ACETAMINOPHEN 325 MG TAB PO PRN ×2 (11:08→20:53)
--- NOTE | 2022-11-06 13:50 | Pharmacy Report ---
Pharmacy PK ABX Note - Date of Service November 06, 2022 - Assessment and Plan Assessment * Ms Gonzalez is a 22 year old F receiving vancomycin/Unasyn for treatment of R breast mastitis, possible developing abscess. * Pertinent microbiologic data includes: R breast cx pending * PMH is significant for hx of granulomatous mastitis w/ recent I&D of L breast abscess in September, now presenting with R breast pain/redness/swelling. * Surgery has been consulted and recommending conservative mgmt with IV abx, IV steroids, pain mgmt. Will re-assess for drainable abscess if no improvement. * ID has also been consulted. They recommended continuation of Unasyn w/ the addition of vanc if no improvement. Unasyn started 11/03 and vanc added today, consistent w/ these recs. Plan Vancomycin * Loading dose: 2000 mg IV x 1 * Maintenance dose: 1500 mg IV every 12 hours * Regimen is predicted to achieve target AUC/ABILIO of 400-600 mg/L.hr * Will evaluate a vanc level in 1-2 days if pt remains on therapy. Unasyn 3gm IV q6h Pharmacy will continue to follow and will adjust dose/frequency as necessary. Thank you. Pharmacy has transitioned to AUC monitoring for vancomycin. AUC/ABILIO is the preferred PK/PD target and is associated with decreased risk of nephrotoxicity compared to traditional trough targets.
[2022-11-06] MEDS ORDERED: diphenhydrAMINE 50 MG/ML VIAL IV STA (15:38)
[2022-11-06] MEDS ORDERED: diphenhydrAMINE 50 MG/ML VIAL IV PRN (15:40)
--- NOTE | 2022-11-06 16:51 | Hospitalist Progress Note ---
Date of Service November 06, 2022 Assessment & Plan (1) Acute mastitis of right breast: Plan: Patient presenting from home with worsening right breast swelling, pain, and redness. Had similar issue in August in the left breast and then developed in the right. 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 Left breast resolved. Patient started on 1 month course of doxycycline on 10/17. Has been following with Dr. Katey Nayak. In the ED, labs show WBC 16.8 K, patient is afebrile and hemodynamically stable. Right breast US:At the patient's area of interest within the right breast there is a heterogeneous area measuring approximately 3.1 x 2.0 1.4 cm. There is a amount of color flow identified within this region. Therefore, this favors a focal area of phlegmon/mastitis. A developing abscess is also considered in the differential diagnosis. c/w Unasyn 11/03. Patient has been afebrile but wbc not improving, added vanc per ID recs. Gen Sx on board, made aware of this new drainage and asked eval if she needs I and D; repeating US Rt breast to assess. ID evaluated, Unasyn and vanc for now, final antibiotic plan to be decided Erythema and warmth improving, but with drainage today, follow repeat US (2) Depression: Plan: Stable, continue home meds DVT PROPHYLAXIS SQ Lovenox Admission and Anticipated Discharge Date Admission Date: November 03, 2022 Subjective Patient seen and examined at bedside as a follow-up of right sided mastitis, failed outpatient treatment with doxycycline. Patient was sitting lying in bed, on room air, NAD, reports no new acute event overnight, reports eating okay and moving bowels okay. Patient denies any fever/chills/chest pain/palpitation. Patient does have increasing drainage from the lower quadrant of her right breast, denies pain. Physical Exam Physical Exam: GENERAL: Alert and oriented x3. NAD, on RA. HEENT: No pallor, no icterus. Pupils equal, round and reactive to light. Oral mucosa moist. NECK: No JVD, no neck masses. HEART: S1 and S2 heard. Regular rate and rhythm. No murmur, no gallop. RESPIRATORY SYSTEM: Normal AP diameter. No accessory muscle use. No wheezing, no crackles. ABDOMEN: Soft, bowel sounds present, nontender, no distention. CENTRAL NERVOUS SYSTEM: No facial droop. Speech is clear. Obeys simple comm ands. Moves extremities. EXTREMITIES: No edema, no erythema seen. Rt breast w/ drainage from inf quadrant, medial induration; surrounding erythema and warmth -->>> improving. Left breast w/ approx 1 cm ulcer w/ no s/s of infection or inflammation. Results & Data Results & Data Vital Signs (Past 12 Hours) Vital Signs Temp Pulse Resp BP Pulse Ox O2 Del Method 11/06/22 10:30 37 C 100 H 16 116/69 98 Room Air
--- NOTE | 2022-11-06 17:29 | Surgery Progress Note ---
Date of Service November 06, 2022 Assessment & Plan (1) Acute mastitis of right breast: (2) Granulomatous mastitis: Plan 22 year-old female with history of granulomatous mastitis and recent incision and drainage of left breast abscess in September presented to ED with increasing right breast pain, redness and swelling. Leukocytosis of 16k, ultrasound of right breast showing phlegmonous/mastitis changes with possible developing abscess. Chronic induration/fluctuant changes of the right outer lower breast on exam and per patient. Now draining thick purulent fluid Plan: continue conservative management with IV antibiotics, IV steroids, and pain management. Repeat US today/tonight will plan for I&D in OR tomorrow NPO past midnight tonight Admission and Anticipated Discharge Date Admission Date: November 03, 2022 Subjective still significant pain; now with drainage of thick purulent fluid from breast Physical Exam Physical Exam: NAD A&Ox3 AFVSS Right breast erythema, purulent drainage from 2 small openings below areola; TTP right breast Results & Data Vital Signs (Past 12 Hours) Vital Signs Temp Pulse Resp BP Pulse Ox O2 Del Method 11/06/22 10:30 37 C 100 H 16 116/69 98 Room Air
[2022-11-06] MEDS: ENOXAPARIN INJ 40 MG/0.4 ML SYR SQ SCH (20:56)
[2022-11-06] MEDS: FLUoxetine HCL 10 MG CAP PO SCH (20:57)
[2022-11-06] MEDS: FLUoxetine HCL 20 MG CAP PO SCH (20:57)
[2022-11-06] MEDS: VANCOMYCIN HCL 1,500 MG in SODIUM CHLORIDE 0.9% 500 ML IV SCH (22:13)
--- NOTE | 2022-11-06 22:49 | Ultrasound Report ---
Exam(s): US RIGHT BREAST EXAM: US Right Breast, Limited CLINICAL HISTORY: Reason for exam: chk for undrained abscess nipple/areola complex. TECHNIQUE: Limited real time ultrasound of the right breast with image documentation, including axilla when performed. COMPARISON: No relevant prior studies available. FINDINGS: Right breast: There is a 2.1 x 3 x 1.2 cm complex lesion with surrounding increased vascularity seen at 12 o'clock position of the right breast. There is hypoechoic linear focus measuring 3 cm in length focus seen at 8 o'clock position which could represent small fluid collection. IMPRESSION: 1. Complex lesion at 12 o'clock position in the right breast with increased surrounding vascularity. This could represent an inflammatory phlegmon. Follow-up imaging is suggested to document resolution 2. Small amount of fluid collection at 8 o'clock position in the right breast Electronically signed by: Emigdio Carlos MD 11/06/22 22:49 PM
[2022-11-07] MEDS: AMPICILLIN/SULBACTAM SOD 3,000 MG in 0.9 % SODIUM CHLORIDE 100 ML IV SCH ×4 (00:48→18:06)
[2022-11-07 06:53] LABS: Hemoglobin 10.5 g/dl (12.0-16.0); Mean Corpuscular Hemoglobin 24.1 pg (25.0-34.0); Mean Corpuscular Hgb Conc 31.8 g/dL (32.0-36.0); Mean Corpuscular Volume 75.7 fL (80.0-100.0); Mean Platelet Volume 8.6 fL (9.4-12.4); Platelet Count 636 K/uL (130-400); RDW Coefficient of Variation 14.6 % (11.5-14.5); RDW Standard Deviation 40.3 fL (36.4-46.3); Red Blood Count 4.36 M/uL (4.20-5.40); White Blood Count 14.11 K/ul (4.8-10.8)
[2022-11-07 07:08] LABS: Anion Gap 6 (3-11); BUN Creatinine Ratio 19.2 (10-20); Blood Urea Nitrogen 10 mg/dl (6-23); Calcium 8.7 mg/dl (8.6-10.3); Carbon Dioxide 26 mmol/L (21-32); Chloride 108 mmol/L (98-107); Creatinine Clr Calc Pharmacy 185.8 ml/min; Est GFR (African American) > 150.0 ml/min; Est GFR (Non-African American) 136.6 ml/min; Glucose 77 mg/dl (70-99(Fasting)); Magnesium 2.2 mg/dl (1.7-2.4); Sodium 140 mmol/L (136-145)
[2022-11-07] MEDS: lamoTRIgine 25 MG TAB PO SCH ×2 (09:09→21:25)
[2022-11-07] MEDS: VANCOMYCIN HCL 1,500 MG in SODIUM CHLORIDE 0.9% 500 ML IV SCH ×2 (09:09→21:35)
[2022-11-07] MEDS: ACETAMINOPHEN 325 MG TAB PO PRN (09:09)
--- NOTE | 2022-11-07 12:56 | Anesthesiology Consultation ---
Date of Service November 07, 2022 Assessment & Plan (1) Encounter for pre-operative examination: Chart Review Chart Review: Acceptable Risk for Surgery and Patient NOT seen in Pre Admission Testing Consults Requested none History Surgery Operation Date: 11/07/22 07:00 Proposed Procedures p Incision and Drainage Right Breast Abscess - Eleno Morales MD Height/Weight Height: 5 ft 3 in Weight: 93.3 kg Allergies Allergy/AdvReac Type Severity Reaction Status Date / Time vancomycin AdvReac itching Verified 11/07/22 12:33 Medications Home Medications Medication Instructions Recorded Confirmed Last Taken doxycycline hyclate 100 mg capsule 100 mg PO BID 11/03/22 11/03/22 11/02/22 fluoxetine 10 mg capsule See Rx Instructions .Route .COMPLEX 11/03/22 11/03/22 11/02/22 fluoxetine 20 mg capsule See Rx Instructions .Route .COMPLEX 11/03/22 11/03/22 11/02/22 lamotrigine 25 mg tablet 25 mg PO BID 11/03/22 11/03/22 11/02/22 loratadine 10 mg tablet 10 mg PO DAILY PRN Allergy Symptoms 11/03/22 11/03/22 Unknown ziprasidone HCl 20 mg capsule 20 mg PO HS 11/03/22 11/03/22 11/02/22 Active Medications Generic Name Dose Route Start Last Admin Trade Name Nickolasq PRN Reason Stop Dose Admin Acetaminophen 650 mg 11/03/22 16:37 11/07/22 09:09 Acetaminophen 325 Mg Tab PO 12/03/22 16:36 650 mg Q4H PRN Administration pain/fever Enoxaparin Sodium 40 mg 11/03/22 21:00 11/06/22 20:56 Enoxaparin Inj 40 Mg/0.4 Ml Syr SQ 12/03/22 20:59 40 mg HS JANINE Administration Fluoxetine HCl 10 mg 11/03/22 21:00 11/06/22 20:57 Fluoxetine Hcl 10 Mg Cap PO 12/03/22 20:59 10 mg HS JANINE Administration Fluoxetine HCl 20 mg 11/03/22 21:00 11/06/22 20:57 Fluoxetine Hcl 20 Mg Cap PO 12/03/22 20:59 20 mg HS JANINE Administration Ampicillin Sodium/Sulbactam 108 mls @ 200 mls/hr 11/03/22 18:00 11/07/22 12:20 Sodium 3,000 mg/ Sodium IV 11/10/22 17:59 200 mls/hr Chloride Q6H JANINE Administration Protocol Vancomycin HCl 1,500 mg/ 530 mls @ 100 mls/hr 11/06/22 22:00 11/07/22 09:09 Sodium Chloride IV 11/13/22 21:59 100 mls/hr Q12H JANINE Administration Ibuprofen 600 mg 11/04/22 10:38 11/05/22 15:41 Ibuprofen 600 Mg Tab PO 12/04/22 10:37 600 mg Q6H PRN Administration Pain Lamotrigine 25 mg 11/03/22 21:00 11/07/22 09:09 Lamotrigine 25 Mg Tab PO 12/03/22 20:59 25 mg BID JANINE Administration Ziprasidone 20 mg 11/03/22 21:00 11/06/22 20:58 Ziprasidone Hcl 20 Mg Cap PO 12/03/22 20:59 20 mg HS JANINE Administration NPO Date Last Intake of Fluids: 11/07/22 Time Last Intake of Fluids: 09:00 Date Last Intake of Solids: 11/06/22 Time Last Intake of Solids: 19:00 Past Medical History Medical History Depression Granulomatous mastitis Pre-eclampsia, severe, third trimester Past Family History Family History Other No significant family history Past Surgical History Surgical History History of section History of incision and drainage Social History Smoking Status: Never smoker Hx Alcohol Use: No Hx Substance Use: No Physical Exam Vital Signs Last Vital Signs Temp 99.0 F 11/07/22 09:00 Pulse 80 11/07/22 09:00 Resp 16 11/07/22 09:00 BP 105/55 L 11/07/22 09:00 Pulse Ox 97 11/07/22 09:00 O2 Del Method Room Air 11/07/22 09:00 Testing Laboratory Results 11/07/22 06:06 11/07/22 06:06 11/06/22 13:00 Gram Stain - Final Breast,Right Wound Culture - Preliminary No growth to date.
[2022-11-07] MEDS ORDERED: PROMETHAZINE HCL 6.25 MG in SODIUM CHLORIDE 0.9% 50 ML IV PRN (13:37)
[2022-11-07] MEDS ORDERED: fentaNYL citrate PF 100 MCG/2 ML VIAL IV PRN (13:37)
[2022-11-07] MEDS ORDERED: ePHEDrine sulfate 50 MG/ML AMP IV PRN (13:37)
[2022-11-07] MEDS ORDERED: ATROPINE SULFATE 0.1 MG/ML 10ML SYR IV PRN (13:37)
[2022-11-07] MEDS ORDERED: ONDANSETRON INJ 2 MG/ML 2 ML VIAL IV PRN (13:37)
[2022-11-07 13:38] LABS: Pregnancy Test, Serum Negative (Negative)
--- NOTE | 2022-11-07 13:47 | Surgery Progress Note ---
Date of Service November 07, 2022 Assessment & Plan (1) Acute mastitis of right breast: (2) Granulomatous mastitis: Plan 22 year-old female with history of granulomatous mastitis and recent incision and drainage of left breast abscess in September presented to ED with increasing right breast pain, redness and swelling. Leukocytosis of 16k, ultrasound of right breast showing phlegmonous/mastitis changes with possible developing abscess. Chronic induration/fluctuant changes of the right outer lower breast on exam and per patient. Now draining thick purulent fluid Plan: I&D in OR today Consent obtained Admission and Anticipated Discharge Date Admission Date: November 03, 2022 Subjective still significant pain; now with drainage of thick purulent fluid from breast; U.S with undrained collection at 8:00. Physical Exam Physical Exam: NAD A&Ox3 AFVSS Right breast erythema, purulent drainage from 2 small openings below areola; TTP right breast Results & Data Vital Signs (Past 12 Hours) Vital Signs Temp Pulse Pulse Resp BP Pulse Ox O2 Del Method 11/07/22 13:14 37.1 C 85 18 85/70 L 99 Room Air 11/07/22 09:00 37.2 C 80 16 105/55 L 97 Room Air 11/07/22 05:58 37 C 88 18 112/66 99 Room Air
[2022-11-07] MEDS ORDERED: fentaNYL citrate PF 100 MCG/2 ML VIAL ONE (13:58)
[2022-11-07] MEDS ORDERED: LIDOCAINE 2% 2 ML VIAL/AMP(20MG/ML) INFIL ONE (13:58)
[2022-11-07] MEDS ORDERED: PROPOFOL IV EMULSION 10 MG/ML 20 ML VIAL IV ONE (13:58)
[2022-11-07] MEDS ORDERED: MIDAZOLAM HCL 1 MG/ML 2ML VIAL ONE (13:58)
[2022-11-07] MEDS ORDERED: LIDOCAINE 2%/EPINEPHRINE 1:100,000 20ML INFIL ONE (14:25)
[2022-11-07] MEDS ORDERED: DEXAMETHASONE SOD INJ 4 MG/ML VIAL ONE (14:37)
[2022-11-07] MEDS ORDERED: ONDANSETRON INJ 2 MG/ML 2 ML VIAL ONE (14:37)
--- NOTE | 2022-11-07 14:37 | Post Operative Brief Note ---
Immediate Post Op Note v1 Date of Surgery November 07, 2022 Pre & Post Diagnosis Operation Date: 11/07/22 07:00 Preop: Right breast abscess Postop: Same I identified the patient and participated in the time-out.: Yes Procedure Operation Date: 11/07/22 07:00 right breast incision and drainage of complex abscess Surgeon Eleno Morales MD Senior Clinical Data Manager none Estimated Blood Loss 15 Findings Consistent with Post-Op Diagnosis 2 separate areas of abscess with purulent drainage
--- NOTE | 2022-11-07 14:42 | Operative Report ---
Post Operative Report Pre & Post Diagnosis Operation Date: 11/07/22 07:00 <No data on this case meets the specified criteria> I identified the patient and participated in the time-out.: Yes Procedure Operation Date: 11/07/22 07:00 <No data on this case meets the specified criteria> Surgeon Eleno Morales MD Luster Applicator none Estimated Blood Loss 15 Findings Consistent with Post-Op Diagnosis large area of purulent drainage and inflammation at the 8 o'clock position; smaller area of purulent drainage at the 12 o'clock position Specimens none Drains none Anesthesia Type General Complications no immediate complications Indications 22-year-old with idiopathic granulomatous mastitis presents with right breast abscess. Ultrasound demonstrated what appeared to be a phlegmon. She was placed on IV antibiotics. Her white count stayed elevated at 17, and she began draining a small amount of thick purulent fluid from the 8 o'clock position 2 cm from the nipple. repeat ultrasound demonstrated abscess at 8:00 and a smaller abscess at 12:00. The decision was made for operative incision and drainage. Description of Procedure The patient was taken to the operating room, placed supine on the operating table. A timeout was performed, SCD boots were placed. She was on antibiotics from the floor. After adequate anesthesia and analgesia was obtained, the area of the right breast was prepped and draped in the normal sterile fashion. Local anesthetic was injected into and around the right breast. We began in the 8 o'clock position. The area of drainage was enlarged with an incision down into a large cavity. This cavity was probed. A moderate amount of purulent fluid was returned. The cavity was copiously irrigated and suctioned free. In probing the cavity, it did not appear to extend near the 12:00 area of abnormal finding on the ultrasound. The area at the 12 o'clock position appeared fluctuant. An 18-gauge needle was placed into the cavity and we attempted aspiration. No fluid was returned. I then made a small incision at the areolar border into the cavity. This yielded a smaller cavity but thick purulent fluid was returned from this area as well. This cavity was irrigated copiously. Half-inch packing was placed into both drainage sites. Dressings were applied. She tolerated the procedure without complication, was transferred in stable condition to the PACU. All instrument, needle, and sponge counts were correct at the end of the case. I performed the procedure. I attest to the content of the Intraoperative Record and any orders documented therein. Any exceptions are noted below.
--- NOTE | 2022-11-07 16:33 | Anesthesiology Progress Note ---
Date of Service November 07, 2022 Anesthesia Post Procedure Vital Signs Vital Signs: Temp Pulse Pulse Pulse Pulse Resp BP 11/07/22 15:00 83 14 11/07/22 15:30 80 15 11/07/22 15:20 36.8 C 82 16 11/07/22 15:10 82 16 11/07/22 14:50 97 H 20 11/07/22 14:48 36.4 C L 97 H 16 11/07/22 13:14 37.1 C 85 18 85/70 L 11/07/22 09:00 37.2 C 80 16 105/55 L 11/07/22 05:58 37 C 88 18 112/66 11/07/22 00:30 36.7 C 70 16 98/56 L 11/06/22 21:00 37.0 C 84 20 105/58 L 11/06/22 17:10 36.9 C 83 20 108/54 L BP Pulse Ox O2 Del Method O2 Flow Rate 11/07/22 15:00 126/77 100 Oxymask 3 11/07/22 15:30 117/66 98 Room Air 11/07/22 15:20 121/80 98 Room Air 11/07/22 15:10 129/78 100 Oxymask 2 11/07/22 14:50 133/77 100 Oxymask 6 11/07/22 14:48 132/76 100 Oxymask 6 11/07/22 13:14 99 Room Air 11/07/22 09:00 97 Room Air 11/07/22 05:58 99 Room Air 11/07/22 00:30 98 Room Air 11/06/22 21:00 97 Room Air 11/06/22 17:10 97 Room Air Pain Intensity Right Breast: Pain Intensity: 6 Transfer of Care Handoff Completed per policy Notes Mental Status: alert / awake / arousable and participated in evaluation Patient Amnestic to Procedure: Yes Nausea / Vomiting: adequately controlled Pain: adequately controlled Airway Patency, RR, SpO2: stable & adequate BP & HR: stable & adequate Hydration State: stable & adequate Anesthetic Complications: no major complications apparent and Pt Satisfied with anesthetic care
--- NOTE | 2022-11-07 17:22 | Hospitalist Progress Note ---
Date of Service November 07, 2022 Assessment & Plan (1) Acute mastitis of right breast: Plan: Patient presenting from home with worsening right breast swelling, pain, and redness. Had similar issue in August in the left breast and then developed in the right. 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 Left breast resolved. Patient started on 1 month course of doxycycline on 10/17. Has been following with Dr. Katey Nayak. In the ED, labs show WBC 16.8 K, patient is afebrile and hemodynamically stable. Right breast US:At the patient's area of interest within the right breast there is a heterogeneous area measuring approximately 3.1 x 2.0 1.4 cm. There is a amount of color flow identified within this region. Therefore, this favors a focal area of phlegmon/mastitis. A developing abscess is also considered in the differential diagnosis. c/w Unasyn 11/03. Patient has been afebrile but wbc not improving, added vanc 11/06 per ID recs. Improving wbc. Gen Sx on board, for I and D today, await operative culture. ID evaluated, Unasyn and vanc for now, final antibiotic plan to be decided Erythema and warmth improving, but with continued drainage today. (2) Depression: Plan: Stable, continue home meds DVT PROPHYLAXIS SQ Lovenox Admission and Anticipated Discharge Date Admission Date: November 03, 2022 Subjective Patient seen and examined at bedside as a follow-up of right sided mastitis, failed outpatient treatment with doxycycline. Patient was lying in bed, on room air, NAD, reports no new acute event overnight, reports eating okay and moving bowels okay. Patient denies any fever/chills/chest pain/palpitation. Patient does have increasing drainage from the lower quadrant of her right breast, denies pain. for I and D per sx today. Physical Exam Physical Exam: GENERAL: Alert and oriented x3. NAD, on RA. HEENT: No pallor, no icterus. Pupils equal, round and reactive to light. Oral mucosa moist. NECK: No JVD, no neck masses. HEART: S1 and S2 heard. Regular rate and rhythm. No murmur, no gallop. RESPIRATORY SYSTEM: Normal AP diameter. No accessory muscle use. No wheezing, no crackles. ABDOMEN: Soft, bowel sounds present, nontender, no distention. CENTRAL NERVOUS SYSTEM: No facial droop. Speech is clear. Obeys simple commands. Moves extremities. EXTREMITIES: No edema, no erythema seen. Rt breast w/ drainage from inf quadrant, medial induration; surrounding erythema and warmth -->>> improving. Left breast w/ approx 1 cm ulcer w/ no s/s of in fection or inflammation. Results & Data Results & Data Vital Signs (Past 12 Hours) Vital Signs Temp Pulse Pulse Pulse Resp BP BP 11/07/22 15:00 83 14 126/77 11/07/22 15:30 80 15 117/66 11/07/22 15:20 36.8 C 82 16 121/80 11/07/22 15:10 82 16 129/78 11/07/22 14:50 97 H 20 133/77 11/07/22 14:48 36.4 C L 97 H 16 132/76 11/07/22 13:14 37.1 C 85 18 85/70 L 11/07/22 09:00 37.2 C 80 16 105/55 L 11/07/22 05:58 37 C 88 18 112/66 Pulse Ox O2 Del Method O2 Flow Rate 11/07/22 15:00 100 Oxymask 3 11/07/22 15:30 98 Room Air 11/07/22 15:20 98 Room Air 11/07/22 15:10 100 Oxymask 2 11/07/22 14:50 100 Oxymask 6 11/07/22 14:48 100 Oxymask 6 11/07/22 13:14 99 Room Air 11/07/22 09:00 97 Room Air 11/07/22 05:58 99 Room Air
[2022-11-07] MEDS: ENOXAPARIN INJ 40 MG/0.4 ML SYR SQ SCH (21:23)
[2022-11-07] MEDS: FLUoxetine HCL 10 MG CAP PO SCH (21:24)
[2022-11-07] MEDS: FLUoxetine HCL 20 MG CAP PO SCH (21:24)
[2022-11-08] MEDS: AMPICILLIN/SULBACTAM SOD 3,000 MG in 0.9 % SODIUM CHLORIDE 100 ML IV SCH ×4 (00:27→17:22)
[2022-11-08] MEDS ORDERED: VANCOMYCIN LEVEL ONE (09:00)
[2022-11-08] MEDS: VANCOMYCIN HCL 1,500 MG in SODIUM CHLORIDE 0.9% 500 ML IV SCH (09:20)
[2022-11-08] MEDS: lamoTRIgine 25 MG TAB PO SCH ×2 (09:20→20:08)
[2022-11-08] MEDS: ACETAMINOPHEN 325 MG TAB PO PRN (09:25)
--- NOTE | 2022-11-08 10:48 | Surgery Progress Note ---
Date of Service November 08, 2022 Assessment & Plan (1) Acute mastitis of right breast: (2) Granulomatous mastitis: Plan 22 year-old female with history of granulomatous mastitis and recent incision and drainage of left breast abscess in September presented to ED with increasing right breast pain, redness and swelling. POD # 1 s/p I&D of right breast x 2 afebrile, vss postop pain controlled Plan: Packing removed at both sites and replaced. Dressing replaced. Continue IV antibiotics Continue pain management as needed Continue bra for compression/support likely needs 1 more day of IV abx, possible discharge home tomorrow. Will need close follow-up in office for packing changes, nurse visit for Friday if discharged over weekend 1 week f/u in surgery office Dr. Morales has seen and examined pt, agrees with above. Admission and Anticipated Discharge Date Admission Date: November 03, 2022 Subjective feeling better today since I&D but pain still present, controlled no fevers or chills no nausea or vomiting Physical Exam Constitutional: WD/WN, vitals as above cooperative and comfortable; no acute distress and not ill appearing Respiratory: normal respiratory effort; no respiratory distress Chest (Breasts): Additional Comments: Right breast: There is still erythema of the 12 o'clock breast and the lower outer/lateral breast however induration and fluctuance improving. Open wound with packing present at 12 o'clock and 8 o'clock. bloody serosanguineous drainage on dressings, no significant odor. Skin: no rashes, warm and dry Psychiatric: Orientation: alert and oriented x 3 Results & Data Vital Signs (Past 12 Hours) Vital Signs Temp Pulse Pulse Resp BP Pulse Ox O2 Del Method 11/08/22 08:00 37 C 72 16 117/76 97 Room Air 11/08/22 05:00 36.8 C 87 18 121/76 98 Room Air 11/08/22 00:00 36.7 C 71 16 90/56 L 96 Room Air Laboratory Results 11/08/22 11/07/22 Range/Units 09:26 12:59 HCG, Qual Negative (Negative) Random Vancomycin Pending
[2022-11-08] MEDS: oxyCODONE/ACETAMINOPHEN 5mg/325mg TAB PO PRN (11:11)
--- NOTE | 2022-11-08 15:47 | Hospitalist Progress Note ---
Date of Service November 08, 2022 Assessment & Plan (1) Acute mastitis of right breast: Plan: Patient presenting from home with worsening right breast swelling, pain, and redness. Had similar issue in August in the left breast and then developed in the right. 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 Left breast resolved. Patient started on 1 month course of doxycycline on 10/17. Has been following with Dr. Katey Nayak. In the ED, labs show WBC 16.8 K, patient is afebrile and hemodynamically stable. Right breast US:At the patient's area of interest within the right breast there is a heterogeneous area measuring approximately 3.1 x 2.0 1.4 cm. There is a amount of color flow identified within this region. Therefore, this favors a focal area of phlegmon/mastitis. A developing abscess is also considered in the differential diagnosis. c/w Unasyn 11/03. Patient has been afebrile but wbc not improving, added vanc 11/06 per ID recs. Improving wbc. Gen Sx on board, 11/07 I and D today. ID evaluated, Unasyn and vanc for now, final antibiotic plan to be decided --->>>>reached out to ID today via Yarnell text, await further recommendation. Pain present, otherwise feels better. (2) Depression: Plan: Stable, continue home meds DVT PROPHYLAXIS SQ Lovenox Admission and Anticipated Discharge Date Admission Date: November 03, 2022 Subjective Patient seen and examined at bedside as a follow-up of right sided mastitis, failed outpatient treatment with doxycycline. Patient was lying in bed, on room air, NAD, reports no new acute event overnight, reports eating okay and moving bowels okay. Patient denies any fever/chills/chest pain/palpitation. Status post I&D yesterday, reports pain. Physical Exam Physical Exam: GENERAL: Alert and oriented x3. NAD, on RA. HEENT: No pallor, no icterus. Pupils equal, round and reactive to light. Oral mucosa moist. NECK: No JVD, no neck masses. HEART: S1 and S2 heard. Regular rate and rhythm. No murmur, no gallop. RESPIRATORY SYSTEM: Normal AP diameter. No accessory muscle use. No wheezing, no crackles. ABDOMEN: Soft, bowel sounds present, nontender, no distention. CENTRAL NERVOUS SYSTEM: No facial droop. Speech is clear. Obeys simple commands. Moves extremities. EXTREMITIES: No edema, no erythema seen. Rt breast clean dressing without soakage. Left breast w/ approx 1 cm ulcer w/ no s/s of infection or inflammation. Results & Data Results & Data Vital Signs (Past 12 Hours) Vital Signs Temp Pulse Pulse Resp BP Pulse Ox O2 Del Method 11/08/22 15:25 36.8 C 80 16 114/60 97 Room Air 11/08/22 11:15 36.8 C 69 18 128/81 97 Room Air 11/08/22 08:00 37 C 72 16 117/76 97 Room Air 11/08/22 05:00 36.8 C 87 18 121/76 98 Room Air
[2022-11-08] MEDS ORDERED: DAPTOmycin 300 MG in SYRINGE 0 ML IV SCH (17:00)
[2022-11-08] MEDS: FLUoxetine HCL 20 MG CAP PO SCH (20:08)
[2022-11-08] MEDS: ENOXAPARIN INJ 40 MG/0.4 ML SYR SQ SCH (20:08)
[2022-11-08] MEDS: FLUoxetine HCL 10 MG CAP PO SCH (20:08)
[2022-11-09] MEDS: AMPICILLIN/SULBACTAM SOD 3,000 MG in 0.9 % SODIUM CHLORIDE 100 ML IV SCH ×2 (00:44→05:59)
[2022-11-09 06:30] LABS: Hemoglobin 10.4 g/dl (12.0-16.0); Mean Corpuscular Hemoglobin 24.2 pg (25.0-34.0); Mean Corpuscular Hgb Conc 31.5 g/dL (32.0-36.0); Mean Corpuscular Volume 76.9 fL (80.0-100.0); Mean Platelet Volume 8.4 fL (9.4-12.4); Platelet Count 653 K/uL (130-400); RDW Coefficient of Variation 14.7 % (11.5-14.5); RDW Standard Deviation 40.4 fL (36.4-46.3); Red Blood Count 4.29 M/uL (4.20-5.40); White Blood Count 15.04 K/ul (4.8-10.8)
[2022-11-09 06:44] LABS: Anion Gap 8 (3-11); BUN Creatinine Ratio 23.3 (10-20); Blood Urea Nitrogen 14 mg/dl (6-23); Calcium 8.6 mg/dl (8.6-10.3); Carbon Dioxide 26 mmol/L (21-32); Chloride 106 mmol/L (98-107); Est GFR (African American) > 150.0 ml/min; Est GFR (Non-African American) 130.3 ml/min; Glucose 94 mg/dl (70-99(Fasting)); Potassium 4.1 mmol/L (3.5-5.1); Sodium 140 mmol/L (136-145)
[2022-11-09] MEDS ORDERED: AMOXICILLIN/CLAVULANATE 875 MG TAB PO SCH (09:30)
[2022-11-09] MEDS: lamoTRIgine 25 MG TAB PO SCH (09:50)
[2022-11-09] MEDS: oxyCODONE/ACETAMINOPHEN 5mg/325mg TAB PO PRN (11:16)
[2022-11-09] MEDS: IBUPROFEN 600 MG TAB PO PRN (11:16)
--- NOTE | 2022-11-09 11:41 | Surgery Progress Note ---
Date of Service November 09, 2022 Assessment & Plan (1) Granulomatous mastitis: Plan: Right side s/p drainage of abscesses x 2. Slowly improving. Packing changed. Stable for discharge with wound care plan of dressing change in office. Continue PO antibiotics on discharge for total of 14 days. Admission and Anticipated Discharge Date Admission Date: November 03, 2022 Subjective Overall doing OK. Not needing pain meds except around dressing changes. Physical Exam Chest (Breasts): Additional Comments: left side with 8 mm ulcer at 5:00, no fluctuance or erythema. Right side packing changed - wounds irrigated with saline. Erythema/ induration persists but improving. No further fluctuance. Results & Data Vital Signs (Past 12 Hours) Vital Signs Temp Pulse Pulse Resp BP Pulse Ox O2 Del Method 11/09/22 08:37 37 C 88 20 129/78 97 Room Air 11/09/22 00:30 36.6 C 67 16 96/54 L 97 Room Air
--- NOTE | 2022-11-09 12:13 | Discharge Summary ---
Date of Service November 09, 2022 Admission HPI Per Admitting Provider 22-year-old female with PMH depression and other problems listed below who presents to the ED for evaluation of right breast pain. History obtained from the patient and review of outpatient PCP and general surgery records. In August, patient was treated for left breast mastitis with cephalexin. Patient underwent left breast ultrasound that was consistent with mastitis. Patient subsequently followed up with breast surgeon and subsequently developed a similar lump in the right breast. She had biopsies taken of both lumps that were consistent with idiopathic granulomatous mastitis. Patient started on a 1 month course of doxycycline on 10/17. Left breast lump, swelling, pain has resolved however right breast has been unchanged and starting doxycycline and acutely worsened over the past few days. Patient reports feeling chills however did not take her temperature. She denies chest pain or shortness of breath. No lightheadedness, duties, diaphoresis, syncopal events. She denies abdominal pain, nausea, vomiting, diarrhea. No urinary symptoms. In the ED, ultrasound shows heterogeneous area measuring approximately 3.1 x 2.0 1.4 cm. There is a amount of color flow identified within this region. Therefore, this favors a focal area of phlegmon/mastitis. Labs show WBC 16.8 K, patient is afebrile. She was given IV Unasyn. Admission Exam Per Admitting Provider General:NAD, obese, well nourished, well nourished, non-toxic appearing Head:NC AT Eyes: anicteric sclera, no conjunctival injection Nose:normal, nares patent Mouth:MMM Neck:supple, trachea midline CV:RRR S1 S2 Pulm:CTA b/l Abd/GI:+ BS, soft, NT, ND, no guarding :no herrera Ext:no pretibial edema, peripheral pulses intact MSK:normal bulk and tone Neuro:alert, oriented, moving all 4 extremities symmetrically. No focal deficits. Psych:flat mood and affect Skin:Right breast with inferior lateral erythema and induration. No clearly circumscribed mass palpable. No drainage noted. Principal Diagnosis Acute mastitis of right breast with abscess Granulomatous mastitis History of depression Discharge Exam GENERAL: Alert and oriented x3. NAD, on RA. HEENT: No pallor, no icterus. Pupils equal, round and reactive to light. Oral mucosa moist. NECK: No JVD, no neck masses. HEART: S1 and S2 heard. Regular rate and rhythm. No murmur, no gallop. RESPIRATORY SYSTEM: Normal AP diameter. No accessory muscle use. No wheezing, no crackles. ABDOMEN: Soft, bowel sounds present, nontender, no distention. CENTRAL NERVOUS SYSTEM: No facial droop. Speech is clear. Obeys simple commands. Moves extremities. EXTREMITIES: No edema, no erythema seen. Rt breast clean dressing without soakage. Left breast w/ approx 1 cm ulcer w/ no s/s of infection or inflammation. Discharge Data Allergies Allergy/AdvReac Type Severity Reaction Status Date / Time vancomycin AdvReac itching Verified 11/07/22 12:33 Consultations 11/03/22 12:08 ED Decision to Admit Stat 11/04/22 09:38 Consult General Surgery Routine 11/04/22 09:44 Consult Infectious Diseases Routine Procedures Performed Operation Date: 11/07/22 07:00 Actual Procedures p Incision and Drainage Right Breast Abscess(Right) - Eleno Morales MD Ordered Studies 11/03/22 08:19 US breast RT limited Stat 11/06/22 17:29 US breast RT limited Urgent Hospital Course (1) Acute mastitis of right breast: Patient presenting from home with worsening right breast swelling, pain, and redness. Had similar issue in August in the left breast and then developed in the right. 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 Left breast resolved. Patient started on 1 month course of doxycycline on 10/17. Has been following with Dr. Katey Nayak. In the ED, labs show WBC 16.8 K, patient is afebrile and hemodynamically stable. Right breast US:At the patient's area of interest within the right breast there is a heterogeneous area measuring approximately 3.1 x 2.0 1.4 cm. There is a amount of color flow identified within this region. Therefore, this favors a focal area of phlegmon/mastitis. A developing abscess is also considered in the differential diagnosis. c/w Unasyn 11/03. Patient has been afebrile but wbc not improving, added vanc 11/06 per ID recs. Improving wbc. -->> reconnected w/ ID . augmentin for 10-14 days therapy. Gen Sx on board, 11/07 I and D . close f/u w/ gen sx office for dressing care and follow up eval. Pt is aware. Pain Mx w/ tylenol, ibuprofen and prn percocet. (2) Depression: Stable, continue home meds DVT PROPHYLAXIS SQ Lovenox Plan Patient being discharged home with following instruction at the point of discharge: Follow-up with your primary care physician within a week time and likely you will need labs CBC/CMP/magnesium/phosphorus. For your infection, you are being discharged on Augmentin for 10 more days to complete the course. Closely follow-up with surgery office for wound care and needed follow-up evaluation. Probiotics will be added. You will be provided with few days worth of pain medication, if your pain continues or starts to worsen, you need further evaluation at either PCP office or surgery office for further pain management prescription. You can use [id number] Tylenol for mild pain, [id number] ibuprofen for moderate pain, Percocet for severe pain. Please make sure that you are able to get your medications today by calling your pharmacy before you leave the hospital so that your treatment continuity is not broken. Home Health Attestation I certify that this patient is under my care and that I, or a physicians bilingual sales assistant working with me, had a face to-face encounter that meets the home health [id number]-qart encounter requirements with this patient. The encounter with the patient was in whole, or in part, for the following medical condition, which is the primary reason for home health care (list medical condition): I certify that, based on my findings, the following services are medically necessary home health services: My clinical findings support the need for the above services because: Further, I certify that my clinical findings support that this patient is homebound (i.e. absences from home require considerable and taxing effort and are for medical reasons or hindu services or infrequently or of short duration when for other reasons) because: Certification for Home Health Services: Based on the above findings, I certify that this patient is confined to the home and needs intermittent longterm care, physical therapy and/or speech therapy or continues to need occupational therapy. The patient is under my care, and I have initiated the establishment of the plan of care. This patient will be followed by a physician who will periodically review the plan of care. Total Time Total Time Spent Total Time Spent (In Minutes): 35 Discharge Plan Discharge Items Patient Disposition: Home - Self-Care Reason For Visit: MASTITIS Discharge Diagnosis: Acute mastitis of right breast with abscess Granulomatous mastitis History of depression Activity: Resume your previous activity Non-emergency contact: Primary Care Provider Call non-emergency contact if: you have any medication questions, your symptoms worsen, your pain is worsening and your temperature is above 101 Follow-up/Referrals: Lynn Ohara DO [Primary Care Provider] - (Date & Time 11/14/2022 3:00 PM Provider Lynn Ohara DO Department [facility] ) Diet: Regular Addtl Attending Provider Instructions: Follow-up with your primary care physician within a week time and likely you will need labs CBC/CMP/magnesium/phosphorus. For your infection, you are being discharged on Augmentin for 10 more days to complete the course. Closely follow-up with surgery office for wound care and needed follow-up evaluation. Probiotics will be added. You will be provided with few days worth of pain medication, if your pain continues or starts to worsen, you need further evaluation at either PCP office or surgery office for further pain management prescription. You can use [id number] Tylenol for mild pain, [id number] ibuprofen for moderate pain, Percocet for severe pain. Please make sure that you are able to get your medications today by calling your pharmacy before you leave the hospital so that your treatment continuity is not broken. Addtl Valet Cashier Provider Instructions: General surgery postop instructions: MEDICATIONS: Resume previous medications unless instructed otherwise by your surgeon. * Percocet 5/325 mg one tablet every 6 hours as needed for moderate to severe pain. * Ibuprofen 600 mg every 6 hours as needed for pain. * Tylenol 500 mg every 6 hours as needed for pain SPECIAL CARE INSTRUCTIONS: * No heavy lifting over 10 pounds for 2 weeks * Wear bra day and night until seen in office. * May shower. Let water run over area and pat dry. * Change outer dressings as needed to keep clean and dry * Packing will be changed in office. * Call the surgeon's office with any questions or concerns - (ex. temperature higher than 101 degrees F, excessive bleeding or pain). FOLLOW UP VISIT: Call [facility] general surgery office at [phone] to make a nurse visit on Friday for wound packing change. You will likely need this daily. at . Pending Studies at Discharge: No Stand-Alone Forms: [facility], Work/School Release, Smoking Cessation Medications and DC Order Prescriptions: New amoxicillin-pot clavulanate 875-125 mg Tablet 1 tab PO BIDM 10 Days Qty: 20 0RF ibuprofen 600 mg Tablet 600 mg PO Q8H PRN (Reason: mild to moderate pain) Qty: 30 0RF Rx Instructions: 1 tab upto three times a day, take with food. oxycodone-acetaminophen [Percocet] 5-325 mg Tablet 1 tab PO Q8H PRN (Reason: moderate to severe pain) 5 Days Qty: 15 0RF Continued lamotrigine 25 mg tablet 25 mg PO BID ziprasidone HCl 20 mg capsule 20 mg PO HS fluoxetine 10 mg capsule See Rx Instructions .ROUTE .COMPLEX Rx Instructions: Take 10mg capsule with 20mg capsule to equal 30mg by mouth nightly fluoxetine 20 mg capsule See Rx Instructions .ROUTE .COMPLEX Rx Instructions: Take 20mg capsule with 10mg capsule to equal 30mg by mouth nightly loratadine 10 mg Tablet 10 mg PO DAILY PRN (Reason: Allergy Symptoms) Discontinued doxycycline hyclate 100 mg capsule 100 mg PO BID Discharge Orders: Discharge Order (Routine); Ordered 11/09/22 Ordered By: Jose Perdue Admission Data Admit Date/Time: 11/03/22 12:19 Attending Provider: Jose Perdue Admit Provider: Shira Norwood Primary Care Provider: Lynn Ohara Other Providers: Shira Norwood ; Mari Gurrola ; Jaziel Mcgarry ; Naya Marquez ; Mark Randall I. ; Lionel Abarca II ; Lisseth Jenkins ; Car Nash ; Shamir Barrett ; Rudy Diehl
== END 2022-11-09 12:40 | disposition home or self-care (01) | DRG 585 ==
LOC: ED 07:53 → SUATTDRO 12:19 → 4E1 12:19
DX: N61.21 Granulomatous mastitis, right breast; F32.A Depression, unspecified; Z88.1 Allergy status to other antibiotic agents; N61.1 Abscess of the breast and nipple